=== PATIENT | female | born 2000 | race Caucasian/White ===

== ENCOUNTER 2022-08-27 15:09 | Outpatient (CLI) | payer OTHER, SELFPAY ==
[2022-08-27 17:20] LABS: Cholesterol* 194 mg/dL (90-199); HDL Cholesterol* 104 mg/dL (>=50); LDL Cholesterol Calculated 76 mg/dL (<100); Triglycerides* 72 mg/dL (40-149)
[2022-08-27 17:53] LABS: TSH With Reflex to FT4* 0.895 uIU/mL (0.270-4.200)
== END 2022-08-27 15:10 | disposition home or self-care (01) ==
PROVIDERS: PCP Physician Assistant Medical; Visit Provider Physician Assistant
DX: Z01.419 Encounter for gynecological examination (general) (routine) without abnormal findings (principal); Z13.6 Encounter for screening for cardiovascular disorders; Z13.29 Encounter for screening for other suspected endocrine disorder
CPT/HCPCS: 80061; 84443

== ENCOUNTER 2025-02-27 13:42 | Outpatient (CLI) | payer OTHER, SELFPAY | END 2025-02-27 13:43 | disposition home or self-care (01) | LOC: NFLDREF 03-01 16:00 | PROVIDERS: PCP Physician Assistant Medical; Referring Provider Physician Assistant Medical; Visit Provider Physician Assistant Medical | DX: N30.00 Acute cystitis without hematuria (principal); B96.20 Unspecified Escherichia coli [E. coli] as the cause of diseases classified elsewhere | CPT/HCPCS: 87086 ==

== ENCOUNTER 2025-05-21 07:35 | Outpatient (CLI) | payer OTHER, SELFPAY | END 2025-05-21 07:36 | disposition home or self-care (01) | LOC: NFLDREF 05-26 03:52 | PROVIDERS: PCP Physician Assistant Medical; Referring Provider Physician Assistant Medical; Visit Provider Physician Assistant Medical | DX: R35.0 Frequency of micturition (principal); N39.0 Urinary tract infection, site not specified | CPT/HCPCS: 87086 ==